=== PATIENT | female | born 1985 | race Two or more races ===

== ENCOUNTER 2018-10-04 08:00 | Outpatient (CLI) | payer MEDICAID, OTHER ==
[2018-10-04 14:16] LABS: THYROID STIMULATING HORMONE 1.27 uIU/mL (0.34-5.60)
[2018-10-04 14:44] LABS: FOLLICLE STIMULATING HORMONE 7.15 mIU/mL; LUTEINIZING HORMONE 8.35 mIU/mL
== END 2018-10-04 23:59 | disposition home or self-care (01) ==
LOC: LAB.N 08:00
PROVIDERS: ATTEND Nurse Practitioner Gerontology
DX: N91.2 Amenorrhea, unspecified (principal)
CPT/HCPCS: 36415; 82670; 83001; 83002; 84443